=== PATIENT | male | born 1990 | race African-American/Black ===

== ENCOUNTER 2019-02-02 09:08 | Emergency (ER) | payer SELFPAY ==
--- NOTE | 2019-02-02 10:09 | ED Physician Documentation ---
PD HPI HEENT - Stated complaint Stated Complaint: SORE THROAT - Chief complaint Chief Complaint: Heent - History obtained from History obtained from: Patient - History of Present Illness Timing - onset: How many days ago (7) Timing - duration: Days (7) Location: Throat Improves: Nothing Worsens: Swalllowing Associated symptoms: Congestion, Rhinorrhea. No: Fever Recently seen: Not recently seen - Additional information Additional information: This is a 28-year-old man who presents with complaints he has had a sore throat for the past week after [place] He noticed some white patches on his tonsils 5 days ago and he is felt hot and cold but has not documented any fevers. He has had a mildly stuffy nose with some postnasal drip and is coughing bringing up a little bit of white-yellowish phlegm. No ear pain. He denies any history of mono however he did say he wanted to be treated for sexually transmitted disease because he had a new sexual partner and had some penile discharge just before leaving [place]. He says that resolved and he denies that he had any genital lesions. Patient has had no vomiting or abdominal pain. Denies any dizziness. He is been using a Chloraseptic spray on his throat but is not helping much no Tylenol or ibuprofen. He wants to get better sitting get back to work and not miss work that he is traveled for. Review of Systems Constitutional: reports: Chills, Fatigue, Sweats. denies: Fever Eyes: denies: Loss of vision Ears: denies: Ear pain Nose: reports: Congestion Throat: reports: Sore throat Cardiac: denies: Chest pain / pressure Respiratory: reports: Cough. denies: Dyspnea GI: denies: Vomiting : reports: Discharge (That has subsequently resolved), Other (Denies genital lesions). denies: Dysuria Skin: denies: Rash, Lesions PD PAST MEDICAL HISTORY - Past Medical History Past Medical History: No Cardiovascular: None Respiratory: None Neuro: None Endocrine/Autoimmune: None GI: None : None HEENT: None Psych: None Musculoskeletal: None Derm: None - Past Surgical History Past Surgical History: No - Present Medications Home Medications: Ambulatory Orders Medication Instructions Recorded Confirmed Doxycycline Hyclate 100 mg PO BID #14 capsule 02/02/19 - Allergies Allergies/Adverse Reactions: Allergies Allergy/AdvReac Type Severity Reaction Status Date / Time Sulfa (Sulfonamide Allergy Edema Verified 02/02/19 09:16 Antibiotics) - Social History Does the pt smoke?: No Smoking Status: Never smoker Does the pt drink ETOH?: Yes Does the pt have substance abuse?: Yes Substance Use and Type: Marijuana - Immunizations Immunizations are current?: No - POLST Patient has POLST: No PD ED PE NORMAL - Vitals Vital signs reviewed: Yes - General General: Alert and oriented X 3, No acute distress, Well developed/nourished - HEENT HEENT: Atraumatic, PERRL, EOMI, Moist mucous membranes, Other (Tonsils are mildly enlarged and there are several ulcerated lesions noted on both tonsils. No other intraoral lesions are noted. There is no postnasal drip.) - Neck Neck: Supple, no meningeal sign, No adenopathy, Thyroid normal - Cardiac Cardiac: RRR, No murmur - Respiratory Respiratory: No respiratory distress, Clear bilaterally - Male Male : Pt declined - Derm Derm: Normal color, Warm and dry, No rash - Neuro Neuro: Alert and oriented X 3, No motor deficit, No sensory deficit, Normal speech Results - Vitals Vitals: Vital Signs - 24 hr 02/02/19 09:17 Temperature 37 C Heart Rate 66 Respiratory 18 Rate Blood Pressure 101/76 O2 Saturation 99 Oxygen O2 Source Room air - Labs Labs: Laboratory Tests 02/02/19 09:20 Group A Strep Rapid Negative PD MEDICAL DECISION MAKING - ED course Complexity details: reviewed results, d/w patient ED course: The results of the strep test were discussed with the patient. As I was leaving the room he told me that he would like to be treated for an STD and told me about the exposure to a new partner. He has declined testing for STDs at this time. Will be given Rocephin 250 mg IM and placed on doxycycline 100 mg twice daily for 7 days. We discussed that there are a multitude of viruses that can cause his sore throat including some that would be sexually transmitted and he should consider testing for HIV on his return to [place]. Departure - Departure Disposition: 01 Home, Self Care Clinical Impression: Sore throat, Possible exposure to STD Condition: Good Instructions: ED Pharyngitis Viral Follow-Up: your,doctor [Other] Prescriptions: Doxycycline Hyclate 100 mg PO BID #14 capsule Comments: Salt water gargles for the sore throat. Take Tylenol and/or ibuprofen as needed for sore throat. It can take a virus 10 to 14 days to run its course. You have declined testing for STD at this visit and have been treated for gonorrhea and chlamydia at your request. There are some sexually transmitted viruses that could also cause the symptoms were seeing in your throat and I would strongly encourage you to have blood testing for HIV upon your return to [place] and also repeat testing in 3 to 6 months. Forms: Activity restrictions
[2019-02-02] MEDS ORDERED: cefTRIAXone 1 GM VIAL IM STA (10:28)
[2019-02-02] MEDS ORDERED: IBUPROFEN 600 MG TABLET PO STA (10:28)
[2019-02-02] MEDS ORDERED: LIDOCAINE 1% 2 ML VIAL SUBQ STA (10:31)
[2019-02-02] MEDS ORDERED: LIDOCAINE 1% 2 ML VIAL MC ONE (10:37)
[2019-02-02] MEDS ORDERED: cefTRIAXone 250 MG VIAL IM STA (10:37)
[2019-02-02 10:39] VITALS: BP 137/104
== END 2019-02-02 10:48 | disposition home or self-care (01) ==
LOC: ED 09:08
DX: J02.9 Acute pharyngitis, unspecified (principal); Z20.2 Contact with and (suspected) exposure to infections with a predominantly sexual mode of transmission
CPT/HCPCS: 87070; 87430; 96372; 99283; A9270